=== PATIENT | male | born 1995 | race Caucasian/White ===

== ENCOUNTER → 2021-04-08 12:41 | Outpatient (CLI) | payer BC, SELFPAY | PROVIDERS: Visit Provider Nurse Practitioner | DX: Z20.822 Contact with and (suspected) exposure to COVID-19 (principal) | CPT/HCPCS: C9803; U0003; U0005 ==

== ENCOUNTER → 2021-10-30 10:45 | Outpatient (CLI) | payer BC, SELFPAY | PROVIDERS: Visit Provider Urology | DX: Z01.812 Encounter for preprocedural laboratory examination (principal); Z11.52 Encounter for screening for COVID-19; Z30.2 Encounter for sterilization | CPT/HCPCS: C9803; U0003; U0005 ==

== ENCOUNTER 2021-11-01 06:34 | Day surgery (SDC) | payer BC, SELFPAY ==
[2021-11-01 07:11] VITALS: BP 137/78; PULSE 58; RESP 16; TEMP 36.6; O2SAT 99; BMI 21.7
[2021-11-01 08:35] VITALS: BP 129/81; PULSE 72; RESP 16; TEMP 36.2; O2SAT 99
[2021-11-01 08:49] VITALS: BP 129/81; PULSE 72; RESP 16; TEMP 36.2; O2SAT 99
--- NOTE | 2021-11-01 09:42 | [facility].OPNOTE ---
Date of procedure: 11/01/21 Pre-op Diagnosis:: Sterilization Post-op Diagnosis:: Sterilization Procedure performed:: Vasectomy Surgeon:: George Potts MD Anesthesia: local Estimated blood loss (mL): 2 Clinical Note:: 26-year-old white male returns for vasectomy under local anesthetic. We have discussed operative procedure and complications and preop once more as well as postop instructions. Operative findings:: Scrotal exam within normal limits. Vasectomy was performed without complication. Operative note:: Patient taken to the operating suite after informed consent was obtained. On the stretcher he was prepped draped in the standard surgical fashion. Scrotal examination showed normal sized testicles without masses or other abnormality. The left vas was palpated and brought up to the midline raphae. Local anesthetic was placed under the skin and around the left vas. After adequate analgesia and incision was made in the midline raphae. A tenaculum was used to grasp the vas and it was brought up through the incision. The basal sheath was then incised and the vas proper was freed of its surrounding tissue and 1 clip placed distally and 2 were placed proximally. A 1 cm segment excised and the nasal lumens were cauterized. Hemostasis achieved and the left vas dropped back into the left hemiscrotum. The right vas was then brought up through the same incision and local anesthetic was placed around the right vas and the same procedure was done as on the left side. The right vas was dropped back into the hemiscrotum and hemostasis achieved. one 3-0 chromic suture placed in a horizontal mattress fashion. Compression dressing applied. Patient tolerated procedure well there are no complications. Condition: stable Disposition: same day Specimens:: Past segments were not sent to path Complications:: None
== END 2021-11-01 08:49 | disposition home or self-care (01) ==
LOC: OUTP 06:36
PROVIDERS: Visit Provider Urology
PROC: (CPT 55250; principal; 2021-11-01 07:30)
DX: Z30.2 Encounter for sterilization (principal)
CPT/HCPCS: 55250